=== PATIENT | female | born 1985 | race Caucasian/White ===

== ENCOUNTER 2017-05-13 13:50 | Emergency (ER) | payer SELFPAY ==
[~2017-05-13] VITALS: Ht 165.1 cm; Wt 77.9 kg
[~2017-05-13 13:50] MED LIST: IBUP-1222 PO; OXYC-302 PO; PREN1TAB56 PO
[2017-05-13 15:17] VITALS: BP 130/73
[2017-05-13] MEDS ORDERED: FAMOTIDINE 20 MG/2 ML ONE (15:28)
[2017-05-13] MEDS ORDERED: ONDANSETRON 2MG/ML, 2ML ONE (15:28)
[2017-05-13] MEDS ORDERED: SODIUM CHLORIDE FLUSH 10ML SYR IVF ONE (15:30)
[2017-05-13] MEDS ORDERED: SODIUM CHLORIDE 0.9% 1,000ML IVBOLUS ONE (15:30)
[2017-05-13] MEDS ORDERED: FAMOTIDINE 20 MG/2 ML IVP ONE (15:30)
[2017-05-13] MEDS ORDERED: ONDANSETRON 2MG/ML, 2ML IVPush ONE (15:30)
[2017-05-13 15:42] LABS: BLOOD UREA NITROGEN 13 mg/dL (7-18)
[2017-05-13 15:48] LABS: ASPARTATE AMINO TRANSFERASE 12 U/L (15-37)
== END 2017-05-13 16:37 | disposition home or self-care (01) ==
LOC: ED 15:31
DX: R11.2 Nausea with vomiting, unspecified (principal); R19.7 Diarrhea, unspecified; R10.9 Unspecified abdominal pain
CPT/HCPCS: 36415; 80053; 84703; 85025; 96361; 96374; 96375; 99284; J2405; J7030; S0028

== ENCOUNTER 2017-10-30 12:18 | Emergency (ER) | payer SELFPAY ==
[~2017-10-30] VITALS: Ht 162.6 cm; Wt 74.5 kg
[2017-10-30 13:27] VITALS: BP 139/78
== END 2017-10-30 13:31 | disposition home or self-care (01) ==
LOC: ED 13:29
DX: H92.03 Otalgia, bilateral (principal); R09.81 Nasal congestion; I10 Essential (primary) hypertension
CPT/HCPCS: 99283

== ENCOUNTER → 2021-05-28 | Outpatient (CLI) | payer OTHER ==
[~2021-05-28] MED LIST changes: +ASCO-184 PO; +ASCO1CAP2 PO; +CHOL10003 PO; +DOCU-192 PO; +ELDE1CAP PO; +GUAI1TBM11 PO; +LORA10TA75 PO; -OXYC-302 PO; +OXYC1TAB14 PO; +[UNRECOGNIZED DRUG - OTHER] PO
== END | disposition home or self-care (01) ==
LOC: STAR 14:39
PROVIDERS: ATTEND Surgery
DX: Z20.822 Contact with and (suspected) exposure to COVID-19 (principal); K42.9 Umbilical hernia without obstruction or gangrene
CPT/HCPCS: U0005; U0003

== ENCOUNTER 2021-06-01 06:27 | Day surgery (SDC) | payer OTHER ==
[~2021-06-01] VITALS: Ht 162.6 cm; Wt 87.5 kg
[2021-06-01] MEDS ORDERED: BUPIVACAINE/PF 0.5% ONE (06:30)
[2021-06-01] MEDS ORDERED: FENTANYL PF 250 MCG/5ML ONE (06:53)
[2021-06-01] MEDS ORDERED: MIDAZOLAM 1 MG/ML, 2ML ONE (06:53)
[2021-06-01 06:57] VITALS: BP 131/82
[2021-06-01] MEDS ORDERED: CHLORHEXIDINE 15 ML UDC PO ONE (07:00)
[2021-06-01 07:06] LABS: HCG UR SG 1.021 (1.003-1.030)
[2021-06-01] MEDS ORDERED: ROCURONIUM 10MG/ML,5ML ONE (07:06)
[2021-06-01] MEDS: LACTATED RINGERS 1,000 ML IV SCH ×2 (07:13→08:20)
[2021-06-01] MEDS ORDERED: CEFAZOLIN 1,000 MG ONE ×2 (07:19)
[2021-06-01] MEDS ORDERED: BUPIVACAINE/PF-EPI 0.5% 1:200K INFIL ONE (07:21)
[2021-06-01] MEDS ORDERED: KETOROLAC 30 MG/1 ML ONE (07:28)
[2021-06-01] MEDS ORDERED: PROPOFOL 10 MG/ML, 20ML ONE (07:28)
[2021-06-01] MEDS ORDERED: HYDROmorphone 1 MG/ML, 1ML INJ IVPush PRN (07:30)
[2021-06-01] MEDS ORDERED: OXYcodone 5 MG/5 ML ORAL.SOL UDC PO PRN (07:30)
[2021-06-01] MEDS ORDERED: ONDANSETRON 2MG/ML, 2ML IVPush PRN (07:30)
[2021-06-01] MEDS ORDERED: ACETAMINOPHEN 325 MG TABLET PO PRN (07:30)
[2021-06-01] MEDS ORDERED: PROMETHAZINE 25 MG/ML, 1ML IVPush PRN (07:30)
[2021-06-01] MEDS ORDERED: LABETALOL 5MG/ML, 20ML IV PRN (07:30)
[2021-06-01] MEDS ORDERED: hydrALAzine 20 MG/ML, 1ML IV PRN (07:30)
[2021-06-01] MEDS ORDERED: MEPERIDINE/PF 25MG/0.5ML IVPush PRN (07:30)
[2021-06-01] MEDS ORDERED: ONDANSETRON 2MG/ML, 2ML ONE (07:31)
[2021-06-01] MEDS ORDERED: OXYcodone 5 MG/5 ML ORAL.SOL UDC ONE (07:53)
[2021-06-01] MEDS ORDERED: ACETAMINOPHEN 650 MG/20.3 ML UDC ONE (07:53)
[2021-06-01] MEDS ORDERED: FENTANYL PF 100 MCG/2ML ONE (07:53)
[2021-06-01] MEDS: FENTANYL PF 100 MCG/2ML IV PRN ×2 (07:57→08:15)
[2021-06-01] MEDS ORDERED: HYDR-2214 PO (08:08)
== END 2021-06-01 10:20 | disposition home or self-care (01) ==
LOC: OUT 06:27
PROVIDERS: ATTEND Surgery
DX: K42.0 Umbilical hernia with obstruction, without gangrene (principal); E78.00 Pure hypercholesterolemia, unspecified; Z79.899 Other long term (current) drug therapy; Z83.79 Family history of other diseases of the digestive system
CPT/HCPCS: 49587; 81025; C1781; J0690; J1885; J2250; J2405; J2704; J3010; J7120